=== PATIENT | female | born 1985 | race Caucasian/White ===

== ENCOUNTER 2017-01-29 19:22 | Emergency (ER) | payer MEDICAID ==
--- NOTE | 2017-01-29 19:46 | ER Document Report ---
ED GI/ - General Chief Complaint: Abdominal Pain Stated Complaint: ABDOMINAL PAIN Time Seen by Provider: 01/29/17 19:38 Notes: The patient is a 31-year-old female, past medical history ovarian cysts, presents with left adnexal pain started last night after she was having intercourse with her . She felt a sharp pain in her left lower quadrant and then bright red blood from her vagina. She now is having a dull ache in that area. She took a oxycodone left over from her surgery with mild relief of her symptoms. She denies current vaginal bleeding, dysuria, nausea, vomiting, diarrhea, constipation, right lower quadrant abdominal pain, fevers or vaginal discharge. TRAVEL OUTSIDE OF THE [place] IN LAST 30 DAYS: No - Related Data Allergies/Adverse Reactions: No Known Allergies Allergy (Verified 03/24/16 18:28) Past Medical History - General Information source: Patient - Social History Smoking Status: Never Smoker Family History: Reviewed & Not Pertinent, Other - adopted Patient has suicidal ideation: No Patient has homicidal ideation: No - Past Medical History Cardiac Medical History: Denies: Hx Coronary Artery Disease, Hx Heart Attack, Hx Hypertension Pulmonary Medical History: Denies: Hx Asthma, Hx Bronchitis, Hx COPD, Hx Pneumonia Neurological Medical History: Reports: Hx Migraine. Denies: Hx Cerebrovascular Accident, Hx Seizures Renal/ Medical History: Denies: Hx Peritoneal Dialysis Musculoskeltal Medical History: Denies Hx Arthritis, Reports Hx Musculoskeletal Deformity Psychiatric Medical History: Reports: Hx Anxiety Past Surgical History: Reports: Hx Section - x 1 - Immunizations Immunizations up to date: Yes Hx Diphtheria, Pertussis, Tetanus Vaccination: Yes - 2012 Review of Systems - Review of Systems Notes: REVIEW OF SYSTEMS: CONSTITUTIONAL: -fevers, -chills EENT: -eye pain, -difficulty swallowing, -nasal congestion CARDIOVASCULAR:-chest pain, -syncope. RESPIRATORY: -cough, -SOB GASTROINTESTINAL: +left abdominal pain, -nausea, -vomiting, -diarrhea GENITOURINARY: -dysuria, -hematuria MUSCULOSKELETAL: -back pain, -neck pain SKIN: -rash or skin lesions. HEMATOLOGIC: -easy bruising or bleeding. LYMPHATIC: -swollen, enlarged glands. NEUROLOGICAL: -altered mental status or loss of consciousness, -headache, - neurologic symptoms PSYCHIATRIC: -anxiety, -depression. ALL OTHER SYSTEMS REVIEWED AND NEGATIVE. Physical Exam - Vital signs Vitals: Temp Pulse Resp BP Pulse Ox 98.2 F 95 20 115/72 98 01/29/17 19:25 01/29/17 19:25 01/29/17 19:25 01/29/17 19:25 01/29/17 19:25 - Notes Notes: PHYSICAL EXAMINATION: GENERAL: Well-appearing, well-nourished and in no acute distress. HEAD: Atraumatic, normocephalic. EYES: Pupils equal round and reactive to light, extraocular movements intact, sclera anicteric, conjunctiva are normal. ENT: nares patent, oropharynx clear without exudates. Moist mucous membranes. NECK: Normal range of motion, supple without lymphadenopathy LUNGS: Breath sounds clear to auscultation bilaterally and equal. No wheezes rales or rhonchi. HEART: Regular rate and rhythm without murmurs ABDOMEN: Soft, mild LLQ tenderness, normoactive bowel sounds. No guarding, no rebound. No masses appreciated. : Pt refused due to normal US. EXTREMITIES: Normal range of motion, no pitting or edema. No cyanosis. NEUROLOGICAL: Cranial nerves grossly intact. Normal speech, normal gait. Normal sensory, motor, and reflex exams. PSYCH: Normal mood, normal affect. SKIN: Warm, Dry, normal turgor, no rashes or lesions noted. Course - Re-evaluation Re-evalutation: Patient symptoms consistent with a possible ruptured left ovarian cyst. Her ultrasound is normal today. She has absolutely no right lower quadrant abdominal pain. Patient deferred a pelvic exam because she said that she will follow-up with the surgical attendant this week. Instructed her to continue anti- inflammatories and take Orcas for severe pain. Given return precautions and she understands - Vital Signs Vital signs: Temp Pulse Resp BP Pulse Ox 98.2 F 95 20 115/72 98 01/29/17 19:25 01/29/17 19:25 01/29/17 19:25 01/29/17 19:25 01/29/17 19:25 - Laboratory Laboratory results interpreted by me: 01/29/17 19:40 Urine Blood SMALL H Ur Leukocyte Esterase SMALL H Discharge - Discharge Clinical Impression: Ovarian cyst rupture Condition: Stable Disposition: HOME, SELF-CARE Additional Instructions: You most likely had an ovarian cyst rupture and that is causing your pain. Continue Motrin every 6 hours and taken Orcas for severe pain. You must follow- up with the surgical attendant this week. PELVIC PAIN: There are many causes of pain in the pelvic area. The cause could be the tubes, ovaries, uterus, intestines, appendix, pelvic muscles and connective tissue, or the urinary tract. The cause of your pelvic pain is not clear. However, it seems safe to treat you outside the hospital. If the pain sounds like a temporary problem, we sometimes wait to see if it goes away. Other patients may need additional tests, such as pelvic ultrasound or cultures. Conditions may change. Call us or come back for reexamination if any problems occur, such as: (1) Pain that becomes more severe, steady, or becomes concentrated in one specific area. Also, pain that is more severe with movement or coughing. (2) Vomiting that persists or becomes more frequent. (3) Blood in the vomitus, urine, or bowel movements. Blood in the stool may have a tarry or black appearance. (4) Shaking chills or fever greater than 100 degrees. (5) The abdomen becomes more distended or swollen. (6) Bowel movements cease. (7) Heavy vaginal bleeding. ORAL NARCOTIC MEDICATION: You have been given a prescription for pain control. This medication is a narcotic. It's best taken with food, as nausea can result if taken on an empty stomach. Don't operate machinery or drive within six hours of taking this medication. Do not combine this medicine with alcohol, or with any medication which can cause sedation (such as cold tablets or sleeping pills) unless you get permission from the physician. Narcotics tend to cause constipation. If possible, drink plenty of fluids and eat a diet high in fiber and fruits. Please be aware that prescription narcotics also have the potential for abuse. People become addicted to these medications because of the general sense of wellbeing that they induce. This feeling along with a significant reduction in tension, anxiety, and aggression provides a stimulating seductive quality to these drugs. Once your pain is under control, we encourage you to discard your unused narcotics. FOLLOW-UP CARE: If you have been referred to a physician for follow-up care, call the physician s office for an appointment as you were instructed or within the next two days. If you experience worsening or a significant change in your symptoms, notify the physician immediately or return to the Emergency Department at any time for re-evaluation. Ovarian Cyst Your examination shows the presence of an ovarian cyst. This is a ball of fluid attached to the ovary. Ovarian cysts in women of child-bearing age are usually innocent. However, the cyst may cause pain when it grows or bursts. An innocent ovarian cyst will usually go away by itself. When the cyst becomes painful, you should rest. Pain medication may be required. Some women find a hot water bottle soothing. The pain usually resolves within one or two days. After menopause, an ovarian cyst may mean a tumor, and requires more aggressive evaluation -- usually surgery is recommended to remove or biopsy the cyst. A very large cyst requires evaluation at any age. Most cysts (even the innocent ones) require follow-up examination. Call the doctor or return at any time if the pain increases significantly, if you become faint, or if you experience vaginal bleeding. Prescriptions: Hydrocodone/Acetaminophen [Orcas 5-325 mg Tablet] 1 tab PO Q4H PRN #15 tablet PRN Reason: Referrals: BUFFY BECKWITH MD [ACTIVE STAFF] - Follow up as needed
[2017-01-29] MEDS ORDERED: OXYCODONE-ACETAMINOPHEN 5-325 MG TABLET PO ONE (20:07)
[2017-01-29] MEDS ORDERED: IBUPROFEN 600 MG TABLET PO ONE (20:07)
[2017-01-29 20:23] LABS: APPEARANCE,URINE CLEAR; BILIRUBIN,URINE NEGATIVE (NEGATIVE); GLUCOSE, URINE NEGATIVE (NEGATIVE); KETONES,URINE NEGATIVE (NEGATIVE); LEUKOCYTE ESTERASE,URINE SMALL (NEGATIVE); NITRITE,URINE NEGATIVE (NEGATIVE); PROTEIN,URINE NEGATIVE (NEGATIVE); URINE SPECIFIC GRAVITY 1.018; UROBILINOGEN,URINE NEGATIVE mg/dL (<2.0)
[2017-01-29] MEDS ORDERED: HYDROCODONE/ACETAMINOPHEN 5-325 MG 6 TAB/DSPK PO PRN (22:28)
[2017-01-29 22:40] VITALS: BP 118/74
== END 2017-01-29 22:40 | disposition home or self-care (01) ==
LOC: ER 19:22
DX: N83.202 Unspecified ovarian cyst, left side (principal); R10.2 Pelvic and perineal pain; R10.32 Left lower quadrant pain
CPT/HCPCS: 99284; 81025; 81001; 76830; 93976; J3490

== ENCOUNTER 2019-12-07 22:24 | Emergency (ER) | payer MEDICAID ==
[2019-12-07] MEDS ORDERED: BUPIVACAINE HCL 0.75% INJ/PF (7.5 MG/1 ML) 10 ML SDV INJ ONE (23:32)
[2019-12-07] MEDS ORDERED: HYDROCODONE/ACETAMINOPHEN 5-325 MG (6 TAB/ER DISP) PO PRN (23:32)
--- NOTE | 2019-12-07 23:34 | ER Document Report ---
HPI - HPI Time Seen by Provider: 12/07/19 23:20 Pain Level: 4 Context: Patient is a 33-year-old female that comes to the emergency department for chief complaint of dental pain on the left lower side. She states she has a known dental fracture, she has a scheduled root canal on Tuesday, she states that she is taking Keflex which she was prescribed on a dental visit several days ago. She states that initially the area was more red, she had some slight swelling of the face, however this has resolved but the pain in the tooth has persisted. She states she cannot sleep or get any rest. She was prescribed some Tylenol 3 and has used this, she is hoping for some additional relief at this time including potential dental block and medications. - REPRODUCTIVE Reproductive: DENIES: : Past Medical History - General Information source: Patient - Social History Smoking Status: Never Smoker Frequency of alcohol use: None Drug Abuse: None Lives with: Family Family History: Reviewed & Not Pertinent, Other - adopted Patient has suicidal ideation: No Patient has homicidal ideation: No - Past Medical History Cardiac Medical History: Denies: Hx Coronary Artery Disease, Hx Heart Attack, Hx Hypertension Pulmonary Medical History: Denies: Hx Asthma, Hx Bronchitis, Hx COPD, Hx Pneumonia Neurological Medical History: Reports: Hx Migraine. Denies: Hx Cerebrovascular Accident, Hx Seizures Renal/ Medical History: Denies: Hx Peritoneal Dialysis Musculoskeletal Medical History: Denies Hx Arthritis, Reports Hx Musculoskeletal Deformity Psychiatric Medical History: Reports: Hx Anxiety Past Surgical History: Reports: Hx Section - x 1 - Immunizations Immunizations up to date: Yes Hx Diphtheria, Pertussis, Tetanus Vaccination: Yes - 2012 Vertical Provider Document - CONSTITUTIONAL General Appearance: WD/WN, Mild Distress - Patient appears to be in pain, holding the left side of her face - INFECTION CONTROL TRAVEL OUTSIDE OF THE [place] IN LAST 30 DAYS: No - HEENT HEENT: Atraumatic, Normocephalic. negative: Normal ENT Exam - Normal oropharyngeal exam except for dental exam, see mouth diagram below. Normal ears, nasal exam, eyes. No noted facial swelling Mouth Diagram: 1 - Fractured tooth with tenderness, no overt surrounding erythema, no noted induration, fluctuance, or abscess. Otherwise unremarkable - NECK Neck: Normal Inspection - No swelling, lymphadenopathy, or evidence of Bertin's angina - RESPIRATORY Respiratory: Breath Sounds Normal, No Respiratory Distress - CARDIOVASCULAR Cardiovascular: Regular Rate, Regular Rhythm - GI/ABDOMEN Gastrointestinal: Abdomen Soft, Abdomen Non-Tender - BACK Back: Normal Inspection - MUSCULOSKELETAL/EXTREMETIES Musculoskeletal/Extremeties: MAEW, FROM, Non-Tender - NEURO Level of Consciousness: Awake, Alert, Appropriate - DERM Integumentary: Warm, Dry, No Rash Course - Re-evaluation Re-evalutation: Patient is already on antibiotics, already has scheduled dental follow-up, requesting symptom management. Patient requesting dental block. This was performed with excellent results. Patient is very grateful. Provided with a few medications to get her to Tuesday when she has her procedure. Provided with lidocaine and fall. Discussed return precautions. Patient states appreciation and agreement. Stable and well-appearing at time of discharge. - Vital Signs Vital signs: Temp Pulse Resp BP Pulse Ox 98.1 F 70 16 118/72 100 12/07/19 22:30 12/07/19 22:30 12/07/19 22:30 12/07/19 22:30 12/07/19 22:30 Procedures - Additional Procedures Left inferior alveolar dental block Additional Procedures: Other - Left inferior alveolar dental block performed using 3 mL's of 0.75% bupivacaine. Aspirated before placing the anesthesia. Minimal bleeding afterwards. Patient tolerated well. No complications. Excellent results. Discharge - Discharge Clinical Impression: Pain, dental Fractured tooth Qualifiers: Encounter type: initial encounter Fracture type: open Qualified Code(s): S02.5XXB - Fracture of tooth (traumatic), initial encounter for open fracture Condition: Stable Disposition: HOME, SELF-CARE Additional Instructions: Continue your Keflex antibiotic. You can take 600 mg of ibuprofen with 1000 mg of Tylenol every 6 hours if needed for pain. You can also take the provided pain medication, however if you do this contains Tylenol and you will need to avoid Tylenol separately. You can apply the topical lidocaine. Please follow- up with your dentist for additional management. Return for any concerning symptoms including swelling of the face, fever, swelling of the neck, or any other concerning symptoms. Prescriptions: Hydrocodone/Acetaminophen [[place] 5-325 mg Tablet] 1 - 2 tab PO TID PRN #8 tablet PRN Reason: Lidocaine HCl [Xylocaine 2% Viscous Soln 15 ml Udcup] 15 ml PO TID PRN #1 udc PRN Reason:
[2019-12-08 00:30] VITALS: BP 112/67
== END 2019-12-08 00:34 | disposition home or self-care (01) ==
LOC: ER 22:24
DX: S02.5XXB Fracture of tooth (traumatic), initial encounter for open fracture (principal); X58.XXXA Exposure to other specified factors, initial encounter
CPT/HCPCS: 99282; 64400; J3490

== ENCOUNTER 2020-03-27 08:52 | Day surgery (SDC) | payer MEDICAID ==
[2020-03-24 13:08] LABS: HEMOGLOBIN 12.4 g/dL (12.0-15.5); MEAN CORPUSCULAR HEMOGLOBIN 27.2 pg (27.0-33.4); MEAN CORPUSCULAR HGB CONC 33.4 g/dL (32.0-36.0); MEAN CORPUSCULAR VOLUME 81 fl (80-97); PLATELET COUNT 237 10^3/uL (150-450); RED BLOOD COUNT 4.55 10^6/uL (3.72-5.28); RED CELL DISTRIBUTION WIDTH 15.5 % (11.5-14.0); WHITE BLOOD COUNT 6.6 10^3/uL (4.0-10.5)
[2020-03-24 13:09] LABS: APPEARANCE,URINE SLIGHTLY-CLOUDY; BILIRUBIN,URINE NEGATIVE (NEGATIVE); COLOR,URINE YELLOW; GLUCOSE, URINE NEGATIVE (NEGATIVE); KETONES,URINE NEGATIVE (NEGATIVE); LEUKOCYTE ESTERASE,URINE TRACE (NEGATIVE); NITRITE,URINE NEGATIVE (NEGATIVE); PROTEIN,URINE NEGATIVE (NEGATIVE); URINE SPECIFIC GRAVITY 1.019; UROBILINOGEN,URINE NEGATIVE mg/dL (<2.0)
[2020-03-24 13:35] LABS: ALBUMIN 4.4 g/dL (3.5-5.0); ALKALINE PHOSPHATASE 65 U/L (38-126); ANION GAP 6 (5-19); ASPARTATE AMINO TRANSFERASE 25 U/L (14-36); BILIRUBIN,TOTAL 0.4 mg/dL (0.2-1.3); BLOOD UREA NITROGEN 14 mg/dL (7-20); CALCIUM 9.4 mg/dL (8.4-10.2); CARBON DIOXIDE 28 mmol/L (22-30); CHLORIDE 103 mmol/L (98-107); GLUCOSE 92 mg/dL (75-110); POTASSIUM 4.3 mmol/L (3.6-5.0); TOTAL PROTEIN 7.4 g/dL (6.3-8.2)
[~2020-03-27 08:52] MED LIST: CEFAZOLIN 1 GM/D5W RTU 1 GM/50 ML RTUPB IV ONE; CEFAZOLIN 1 GM/D5W RTU 1 GM/50 ML RTUPB IV PRN; LACTATED RINGERS 1000 ML IV PRN; LIDOCAINE 0.5% INJ-PF (5 MG/ML) 50 ML SDV SUBCUT PRN; RINGERS SOLUTION,LACTATED 1,000 ML IV PRN
[2020-03-27] MEDS ORDERED: FENTANYL CITRATE INJ/PF 250 MCG/5 ML AMPULE ONE (10:18)
[2020-03-27] MEDS ORDERED: PROPOFOL INJ 200 MG/20 ML VIAL IV ONE (10:18)
[2020-03-27] MEDS ORDERED: MIDAZOLAM 2 MG/2 ML INJ ONE (10:18)
[2020-03-27] MEDS ORDERED: FENTANYL CITRATE INJ/PF 100 MCG/2 ML AMPUL IV PRN ×3 (11:09)
[2020-03-27] MEDS ORDERED: DIPHENHYDRAMINE HCL 50 MG/ML VIAL IV PRN (11:09)
[2020-03-27] MEDS ORDERED: MEPERIDINE HCL/PF INJ 25 MG/1 ML DISP.SYRIN IV PRN (11:09)
[2020-03-27] MEDS ORDERED: OXYCODONE-ACETAMINOPHEN 5-325 MG TABLET PO PRN ×3 (11:09→12:31)
[2020-03-27] MEDS ORDERED: PROMETHAZINE HCL INJ 25 MG/1 ML VIAL IV PRN ×3 (11:09→12:31)
[2020-03-27] MEDS ORDERED: ACETAMINOPHEN 1,000 MG/100 ML RTUPB IV PRN (12:31)
[2020-03-27] MEDS ORDERED: RINGERS SOLUTION,LACTATED 1,000 ML IV PRN (12:31)
[2020-03-27] MEDS ORDERED: ACETAMINOPHEN 325 MG TABLET PO PRN (12:31)
--- NOTE | 2020-03-27 12:46 | Operative Report ---
Operative Report DATE OF SURGERY: 03/27/20 PREOPERATIVE DIAGNOSIS: abnormal uterine bleeding, pelvic pain, pelvic adhesions POSTOPERATIVE DIAGNOSIS: same and adenomyosis OPERATION: Assisted total laparoscopic hysterectomy with bilateral salpingectomy and lysis of adhesions SURGEON: BUFFY BECKWITH 1ST ONCOLOGY NAVIGATOR: KALEIGH OTERO ANESTHESIA: GA TISSUE REMOVED OR ALTERED: uterus, cervix and bilateral fallopian tubes COMPLICATIONS: none ESTIMATED BLOOD LOSS: 150 cc INTRAOPERATIVE FINDINGS: 12-week size uterus and appearance consistent with adenomyosis, tubes with evidence of Filshie clip bilateral tubal ligations, dense adhesions of the bladder flap to the lower uterine segment, left ovary with a small hemorrhagic appearing cyst ruptured during the surgery PROCEDURE: Patient was taken to the operating room prepared and draped in normal sterile fashion in dorsolithotomy position. Under sterile conditions a De La Cruz catheter was placed to gravity. Speculum was placed into the vagina and the cervix was grasped on the anterior lip with a single-tooth tenaculum. The cervix was then dilated to accommodate a large V care uterine manipulator. Manipulator it was placed, gloves were changed and attention was turned to the upper portion of the case. A 2-1/2 cm umbilical skin incision was made 11 blade and this was carried through to the underlying layer of fascia with the same 11 blade. It was grasped to Anthony's acted with Woods's. Peritoneal cavity was entered bluntly. A GelPort was placed in a normal fashion the camera port and air seal in the appropriate locations. Pneumo was then inflated with approximately 2 L of CO2 gas. The camera was then introduced into the peritoneal cavity through the camera port and the patient was placed in steep Trendelenburg. The above findings were noted. Under direct visualization two 5 mm ports were placed approximately 10 cm on either side of the umbilicus. The robot was then docked with the vessel sealer placed on the patient's left and the monopolar scissors placed placed on the patient's right. I then unscrubbed and set at the robotic console beginning with the left adnexa fallopian tube was transected from the uterus using the vessel sealer and monopolar scissors as needed. The fallopian tube was then removed through the assistance port. The ovarian ligament was then transected using the vessel sealer. The uterine artery was skeletonized using blunt dissection and ligated using the vessel sealer down to the level of the external cervical os. The bladder flap was then begun using monopolar scissors and blunt dissection over the V care cup noted through the mucosa. Attention was then turned to the right adnexa where the fallopian tube was transected in a similar fashion. The utero-ovarian ligament was transected using the vessel sealer. The Uterine artery was then transected using the vessel sealer and skeletonized using blunt dissection. The vessel sealer was again used to completely transect the uterine artery down to the level of the external cervical os. The bladder flap was completed using similar sharp and blunt dissection. Once the bladder was felt to be adequately away from the lower uterine segment, the colpotomy was begun on the anterior aspect of the cervix following the outline of the V care cup mucosa. The cup was followed in a circumferential fashion completely around the cervix estimate was completely freed. The specimen was then removed through the vaginal defect. The instruments were then changed to a Dustin needle superintendent drivers and pro-grasp. AV lock needle was introduced through the assistance port. The lock needle was used to close the vaginal cuff and hemostasis. The needle was then removed through the assistance port. The peritoneal cavity was carefully inspected the ureters were noted to both be peristalsing and there was no signs of hydroureter. The robot was then undocked. The fascia was closed at the umbilical skin incision seen 0 Vicryl 3 skin incisions were closed using 4-0 Vicryl. Sponge lap and needle counts were correct x2 and the patient was taken to recovery in stable condition.
[2020-03-27] MEDS: FENTANYL CITRATE INJ/PF 100 MCG/2 ML AMPUL ONE ×3 (12:59→13:09)
[2020-03-27] MEDS ORDERED: MEPERIDINE HCL/PF INJ 25 MG/1 ML DISP.SYRIN ONE (13:32)
[2020-03-27] MEDS ORDERED: KETOROLAC TROMETHAMINE INJ/PF 30 MG/1 ML SDV ONE (13:49)
[2020-03-27] MEDS ORDERED: PROMETHAZINE HCL INJ 25 MG/1 ML VIAL ONE (13:54)
[2020-03-27] MEDS: KETOROLAC TROMETHAMINE INJ/PF 30 MG/1 ML SDV IV SCH ×2 (14:34→22:34)
[2020-03-27] MEDS ORDERED: SUCCINYLCHOLINE CHLORIDE INJ 200 MG/10 ML VIAL ONE (15:33)
[2020-03-27] MEDS ORDERED: PHENYLEPHRINE HCL INJ/PF 10 MG/1 ML SDV ONE (15:33)
[2020-03-27] MEDS ORDERED: ONDANSETRON HCL INJ/PF 4 MG/2 ML SDV ONE (15:33)
[2020-03-27] MEDS ORDERED: DEXAMETHASONE SOD PHOSPHATE INJ 4 MG/1 ML VIAL ONE (15:33)
[2020-03-27] MEDS ORDERED: LIDOCAINE 2% INJ-PF (20 MG/ML) 2 ML AMPUL ONE (15:33)
[2020-03-27] MEDS ORDERED: ROCURONIUM BROMIDE INJ 50 MG/5 ML VIAL IV ONE (15:33)
[2020-03-27] MEDS ORDERED: KETOROLAC TROMETHAMINE 60 MG/2 ML SDV ONE (15:33)
[2020-03-27] MEDS ORDERED: NEOSTIGMINE METHYLSULFATE 10 MG/10 ML VIAL ONE (15:33)
[2020-03-27] MEDS ORDERED: GLYCOPYRROLATE 1 MG/5 ML VIAL ONE (15:33)
[2020-03-27] MEDS: MORPHINE SULFATE 10 MG/ML INJ IV PRN ×2 (16:44→23:37)
[2020-03-27] MEDS: DOCUSATE SODIUM 100 MG CAPSULE PO SCH (17:37)
[2020-03-27] MEDS: OXYCODONE-ACETAMINOPHEN 5-325 MG TABLET PO PRN ×2 (17:41→22:34)
[2020-03-28] MEDS: OXYCODONE-ACETAMINOPHEN 5-325 MG TABLET PO PRN ×4 (04:00→16:48)
[2020-03-28] MEDS: KETOROLAC TROMETHAMINE INJ/PF 30 MG/1 ML SDV IV SCH (06:31)
[2020-03-28 07:33] LABS: HEMATOCRIT 27.7 % (36.0-47.0); HEMOGLOBIN 9.4 g/dL (12.0-15.5); MEAN CORPUSCULAR HEMOGLOBIN 27.3 pg (27.0-33.4); MEAN CORPUSCULAR VOLUME 81 fl (80-97); PLATELET COUNT 211 10^3/uL (150-450); RED BLOOD COUNT 3.44 10^6/uL (3.72-5.28); RED CELL DISTRIBUTION WIDTH 15.6 % (11.5-14.0)
[2020-03-28] MEDS: SIMETHICONE 80 MG TAB.CHEW PO PRN ×2 (08:37→16:48)
[2020-03-28] MEDS: DOCUSATE SODIUM 100 MG CAPSULE PO SCH (10:10)
--- NOTE | 2020-03-28 11:18 | PDOC DISCHARGE SUMMARY ---
Impression - Admit/DC Date/PCP Admission Date/Primary Care Provider: KENYON HECTOR DO Discharge Date: 03/28/20 - Discharge Diagnosis (1) Abnormal uterine bleeding Is this a current diagnosis for this admission?: Yes (2) Pelvic pain Is this a current diagnosis for this admission?: Yes - Assessment Summary: underwent RATLH w/ b/l salpingectomy and JOCELIN yesterday. Has had unremarkable postoperative course. tolerating regular diet and voiding normally - Additional Information Resuscitation Status: Full Code Discharge Diet: As Tolerated Discharge Activity: Balance Activity w/Rest, No Driving, No Lifting Over 10 Pounds, No Lifting/Push/Pulling, Pelvic Rest, No tub bath Referrals: BUFFY BECKWITH MD [ACTIVE STAFF] - 04/09/20 10:00 am (CALL THE OFFICE OF ANY QUESTIONS OR CONCERNS.) KENYON HECTOR DO [Primary Care Provider] - Prescriptions: Oxycodone HCl/Acetaminophen [Percocet 5-325 mg Tablet] 1 tab PO Q4HP PRN #30 tablet PRN Reason: Docusate Sodium [Colace 100 mg Capsule] 100 mg PO BID #60 capsule Ibuprofen [Motrin 800 mg Tablet] 800 mg PO Q6 PRN #60 tablet PRN Reason: Home Medications: Docusate Sodium [Colace 100 mg Capsule] 100 mg PO BID #60 capsule 03/28/20 Ibuprofen [Motrin 800 mg Tablet] 800 mg PO Q6 PRN #60 tablet 03/28/20 Oxycodone HCl/Acetaminophen [Percocet 5-325 mg Tablet] 1 tab PO Q4HP PRN #30 tablet 03/28/20 History of Present Illiness History of Present Illness: JOSHUA ORELLANA is a 34 year old female Physical Exam - Physical Exam Vital Signs: Temp Pulse Resp BP Pulse Ox 98.3 F 85 16 97/50 L 100 03/28/20 07:51 03/28/20 07:51 03/28/20 07:51 03/28/20 07:51 03/28/20 07:51 Intake & Output 03/27/20 03/28/20 03/29/20 06:59 06:59 06:59 Intake Total 2840 Output Total 1000 Balance 1840 Weight 62.6 kg Results Laboratory Results: WBC 17.0 10^3/uL (4.0-10.5) H 03/28/20 07:11 RBC 3.44 10^6/uL (3.72-5.28) L 03/28/20 07:11 Hgb 9.4 g/dL (12.0-15.5) L 03/28/20 07:11 Hct 27.7 % (36.0-47.0) L 03/28/20 07:11 MCV 81 fl (80-97) 03/28/20 07:11 MCH 27.3 pg (27.0-33.4) 03/28/20 07:11 MCHC 34.0 g/dL (32.0-36.0) 03/28/20 07:11 RDW 15.6 % (11.5-14.0) H 03/28/20 07:11 Plt Count 211 10^3/uL (150-450) 03/28/20 07:11 Sodium 137.4 mmol/L (137-145) 03/24/20 12:15 Potassium 4.3 mmol/L (3.6-5.0) 03/24/20 12:15 Chloride 103 mmol/L (98-107) 03/24/20 12:15 Carbon Dioxide 28 mmol/L (22-30) 03/24/20 12:15 Anion Gap 6 (5-19) 03/24/20 12:15 BUN 14 mg/dL (7-20) 03/24/20 12:15 Creatinine 0.63 mg/dL (0.52-1.25) 03/24/20 12:15 Est GFR ( Amer) > 60 (>60) 03/24/20 12:15 Est GFR (MDRD) Non-Af > 60 (>60) 03/24/20 12:15 Glucose 92 mg/dL (75-110) 03/24/20 12:15 Calcium 9.4 mg/dL (8.4-10.2) 03/24/20 12:15 Total Bilirubin 0.4 mg/dL (0.2-1.3) 03/24/20 12:15 Direct Bilirubin 0.0 mg/dL (0.0-0.4) 03/24/20 12:15 Neonat Total Bilirubin Not Reportable 03/24/20 12:15 Neonat Direct Bilirubin Not Reportable 03/24/20 12:15 Neonat Indirect Bili Not Reportable 03/24/20 12:15 AST 25 U/L (14-36) 03/24/20 12:15 ALT 16 U/L (<35) 03/24/20 12:15 Alkaline Phosphatase 65 U/L (38-126) 03/24/20 12:15 Total Protein 7.4 g/dL (6.3-8.2) 03/24/20 12:15 Albumin 4.4 g/dL (3.5-5.0) 03/24/20 12:15 Urine Color YELLOW 03/24/20 12:07 Urine Appearance SLIGHTLY-CLOUDY 03/24/20 12:07 Urine pH 7.0 (5.0-9.0) 03/24/20 12:07 Ur Specific [place] 1.019 03/24/20 12:07 Urine Protein NEGATIVE mg/dL (NEGATIVE) 03/24/20 12:07 Urine Glucose (UA) NEGATIVE mg/dL (NEGATIVE) 03/24/20 12:07 Urine Ketones NEGATIVE mg/dL (NEGATIVE) 03/24/20 12:07 Urine Blood NEGATIVE (NEGATIVE) 03/24/20 12:07 Urine Nitrite NEGATIVE (NEGATIVE) 03/24/20 12:07 Urine Bilirubin NEGATIVE (NEGATIVE) 03/24/20 12:07 Urine Urobilinogen NEGATIVE mg/dL (<2.0) 03/24/20 12:07 Ur Leukocyte Esterase TRACE (NEGATIVE) H 03/24/20 12:07 Urine WBC (Auto) 1 /HPF 03/24/20 12:07 Urine RBC (Auto) 0 /HPF 03/24/20 12:07 Urine Bacteria (Auto) TRACE /HPF 03/24/20 12:07 Squamous Epi Cells Auto 11 /HPF 03/24/20 12:07 Urine Mucus (Auto) MOD /LPF 03/24/20 12:07 Urine Ascorbic Acid NEGATIVE (NEGATIVE) 03/24/20 12:07 Urine HCG, Qual NEGATIVE (NEGATIVE) 03/27/20 09:00 COVID-19 Source NASOPHARYNGEAL 03/24/20 12:12 COVID-19 (KIMBERLY) NOT DETECTED 03/24/20 12:12 Blood Type B POSITIVE 03/24/20 12:15 Antibody Screen NEGATIVE 03/24/20 12:15 Stroke Is this a Stroke Patient?: No Acute Heart Failure - Is this a Heart Failure Patient?: No
[2020-03-28] MEDS ORDERED: IBUPROFEN 800 MG TABLET PO SCH (12:00)
[2020-03-28 15:10] VITALS: BP 97/55
== END 2020-03-28 18:15 | disposition home or self-care (01) ==
LOC: OROUT 08:52 → 2N 14:15 → OROUT 03-28 18:15
PROVIDERS: ATTEND Obstetrics & Gynecology
DX: N92.0 Excessive and frequent menstruation with regular cycle (principal); R10.2 Pelvic and perineal pain; N93.9 Abnormal uterine and vaginal bleeding, unspecified; N73.6 Female pelvic peritoneal adhesions (postinfective); N80.0 Endometriosis of uterus; Z79.899 Other long term (current) drug therapy; Z87.891 Personal history of nicotine dependence
CPT/HCPCS: 86900; 86901; 36415 ×2; 86850; 85027 ×2; 87635; 81025; 80053; 81001; 88307 ×2; 94799; 00944; 58571; C1758; A4649; J2250; J0690; J3490 ×6; J1100; J1885 ×3; J3010 ×2; J2175; J2270; J2710; J2370; J2550; J0330; J2405; J2704; C9803; S2900; 944